=== PATIENT | male | born 1950 | race Hispanic/Latino ===

== ENCOUNTER 2017-09-30 11:48 | Emergency (ER) | payer SELFPAY ==
[2017-09-30 12:18] VITALS: RESP 18; TEMP 97
--- NOTE | 2017-09-30 13:18 | CT ---
PROCEDURE: CT HEAD WITHOUT CONTRAST. HISTORY: trauma COMPARISON: None available. TECHNIQUE: Axial computed tomography images were obtained through the head/brain without intravenous contrast. Radiation dose: Total exam DLP = 970.1 mGy-cm. This CT exam was performed using one or more of the following dose reduction techniques: Automated exposure control, adjustment of the mA and/or kV according to patient size, and/or use of iterative reconstruction technique. FINDINGS: HEMORRHAGE: No intracranial hemorrhage. BRAIN: No mass effect or edema. Mild atrophy. Mild chronic periventricular microvascular ischemic changes. Additional subtle hypo attenuating foci in the barnes radiata/centrum semiovale are nonspecific and may be due to chronic ischemia versus demyelinating process. VENTRICLES: Unremarkable. No hydrocephalus. CALVARIUM: Unremarkable. PARANASAL SINUSES: Unremarkable as visualized. No significant inflammatory changes. MASTOID AIR CELLS: Unremarkable as visualized. No inflammatory changes. OTHER FINDINGS: None. IMPRESSION: No acute intracranial pathology. Age-related changes. Additional subtle nonspecific white matter changes may be due to chronic microvascular ischemic changes versus demyelinating process. MRI can be obtained for further evaluation as clinically warranted on a nonemergent basis.
--- NOTE | 2017-09-30 13:28 | ED PDOC ---
HPI: General Adult Time Seen by Provider: 09/30/17 12:03 Chief Complaint (Nursing): Trauma History Per: Patient Additional Complaint(s): Pt. states at approximately 2330 last night he was felt dizzy then fell down striking the L side of his face onto the ground indoors. Pt. states he may have lost consciousness for "less than 1 second." Pt. states he remembers falling down and the impact. Admits to drinking 3 glasses of wine last night. Reports that he usually does not drink alcohol. Of note, pt. had a L carotid stent placed 2 weeks ago in [place] (pt had 60% blockage). Currently taking Plavix. Pt. states he feels slightly dizzy and has a mild headache. Denies LOC, vomiting, neck pain, numbness, tingling, chest pain, palpitations, abdominal pain, other injury. Pt. states he initially did not want to be evaluated but was encouraged by his friends to get checked out. Against Medical Advice - AMA Patient Left Against Medical Advice: The patient declines admission to the hospital and wishes to leave the Emergency Department. This action is against my medical advice. This decision was made with informed refusal. The patient was told that admission to the hospital is necessary. Explanation of the reasons why were discussed. The risks of leaving were explained to the patient and include, but are not limited to, worsening of known or currently unknown conditions, permanent disability and from undiagnosed or untreated conditions. The patient has the capacity to make this informed decision and understands my explanation of the current medical problem and risks of leaving. The patient voluntarily accepts these risks and signed an AMA form documenting our conversation. The patient was given the opportunity to ask questions and reconsider. The patient was encouraged to return to the Emergency Department at any time for further care. 09/30/17 17:24 Patient informed that he requires more testing therefore he needs admission into hospital. Patient refused admisison. Instructed to return to ED immediately if symptoms persist or worsen. Case d/w Dr. Flores prior to disposition. Pt. requesting Rx for Norvasc 5mg as he no longer has any. Last dose was taken over the weekend. Past Medical History Reviewed: Historical Data, Nursing Documentation, Vital Signs Vital Signs: Last Vital Signs Temp 97 F L 09/30/17 17:36 Pulse 83 09/30/17 17:36 Resp 18 09/30/17 17:36 BP 150/90 09/30/17 17:36 Pulse Ox 98 09/30/17 17:36 - Medical History PMH: HTN, Hypercholesterolemia - Surgical History Surgical History: Appendectomy, Cholecystectomy Other surgeries: L carotid stent - Family History Family History: States: No Known Family Hx - Home Medications Home Medications: Ambulatory Orders Medication Instructions Recorded Amlodipine 1 tab PO DAILY 09/30/17 Clopidogrel [Plavix] 75 mg PO DAILY 09/30/17 Olmesartan/Hydrochlorothiazide 1 tab PO DAILY 09/30/17 [Olmesartan-Hctz 40-25 mg Tab] Pantoprazole Sodium [Protonix] 40 mg PO DAILY 09/30/17 amLODIPine [Norvasc] 5 mg PO DAILY #5 tab 09/30/17 - Allergies Allergies/Adverse Reactions: Allergies Allergy/AdvReac Type Severity Reaction Status Date / Time No Known Allergies Allergy Verified 09/30/17 12:20 Review of Systems ROS Statement: Except As Marked, All Systems Reviewed And Found Negative Neurological: Positive for: Headache, Dizziness Physical Exam - Reviewed Nursing Documentation Reviewed: Yes Vital Signs Reviewed: Yes - Physical Exam Appears: Positive for: Well, Non-toxic, No Acute Distress Head Exam: Positive for: ATRAUMATIC, NORMAL INSPECTION, NORMOCEPHALIC Skin: Positive for: Normal Color, Warm. Negative for: Rash Eye Exam: Positive for: EOMI, PERRL, Periorbital swelling (left), Periorbital tenderness (left with ecchymosis), Other (no hyphema b/l). Negative for: Nystagmus (b/l), Conjunctival injection (b/l) ENT: Positive for: Normal ENT Inspection, TM Is/Are (no hemotympanum b/l) Neck: Positive for: Normal, Painless ROM Cardiovascular/Chest: Positive for: Regular Rate, Rhythm, Chest Non Tender Respiratory: Positive for: CNT, Normal Breath Sounds Gastrointestinal/Abdominal: Positive for: Normal Exam, Bowel Sounds, Soft. Negative for: Tenderness Back: Positive for: Normal Inspection Extremity: Positive for: Normal ROM Neurologic/Psych: Positive for: Alert, Oriented, Gait (steady unassisted). Negative for: Aphasia, Facial Droop - Laboratory Results Result Diagrams: 09/30/17 13:32 09/30/17 13:32 - ECG ECG: Positive for: Interpreted By Me ECG Rhythm: Positive for: Sinus Rhythm. Negative for: ST/T Changes Rate: 82 O2 Sat by Pulse Oximetry: 96 - Progress ED Course And Treament: Case d/w Dr. Martinez who recommends CT head, duplex carotid US, labs. Labs, CT head w/o contrast, duplex b/l carotid US ordered. EKG ordered. Pt. placed on cardiac monitor technician. 1339 CT maxillofacial w/o contrast: No acute facial bone fracture. Mild left periorbital swelling. CT head w/o contrast: No acute intracranial pathology. Age-related changes. Additional subtle nonspecific white matter changes may be due to chronic microvascular ischemic changes versus demyelinating process. MRI can be obtained for further evaluation as clinically warranted on a nonemergent basis. Pending US. Disposition - Clinical Impression Clinical Impression: Dizziness, Head injury, Left against medical advice - Patient ED Disposition Is Patient to be Admitted: No - Disposition Referrals: Allen Aguayo [Outside] Disposition: Against Medical Advice Disposition Time: 17:26 Condition: STABLE Prescriptions: amLODIPine [Norvasc] 5 mg PO DAILY #5 tab Instructions: Closed Head Injury (DC), Dizziness, Nonvertigo, (DC), Leaving Against Medical Advice Forms: [email or web address]. ([place]) Print Language: BANGLADESHI
--- NOTE | 2017-09-30 13:41 | CT ---
PROCEDURE: CT MAXILLOFACIAL BONES WITHOUT CONTRAST HISTORY: trauma; L periorbital swelling COMPARISON: None TECHNIQUE: Contiguous axial CT images of the maxillofacial bones were obtained. Coronal and sagittal reformats were generated. Radiation dose: Total exam DLP = 740.3 mGy-cm. This CT exam was performed using one or more of the following dose reduction techniques: Automated exposure control, adjustment of the mA and/or kV according to patient size, and/or use of iterative reconstruction technique. FINDINGS: NASAL BONES: Unremarkable. ORBITS: Mild left periorbital swelling. Globes intact. Intraconal and extraconal fat preserved. PARANASAL SINUSES/ MASTOIDS: Clear. MAXILLA: Left maxillary sinus mucosal thickening. MANDIBLE/ TEMPOROMANDIBULAR JOINTS: Unremarkable. SKULL BASE: Unremarkable. TEMPORAL BONES: Middle ears and mastoid grossly unremarkable. OTHER FINDINGS: Left carotid artery stent. IMPRESSION: No acute facial bone fracture. Mild left periorbital swelling.
[2017-09-30 13:47] LABS: ALB/GLOB RATIO 1.3 (1.0-2.1); ALBUMIN 4.3 g/dL (3.5-5.0); ALT/SGPT 50 U/L (21-72); AST/SGOT 21 U/L (17-59); BLOOD UREA NITROGEN 24 mg/dl (9-20); CALCIUM 9.6 mg/dL (8.4-10.2); GFR AFRICAN-AMERICAN > 60; GFR NON-AFRICAN AMERICAN > 60
[2017-09-30 13:49] LABS: BASO % 0.4 % (0.0-2.0); EOS # 0.1 K/uL (0.0-0.7); EOS % 1.8 % (0.0-4.0); HEMOGLOBIN 14.2 g/dL (12.0-18.0); LYMPH # 2.1 K/uL (1.0-4.3); LYMPH % 25.1 % (20.0-40.0); MEAN CELL VOLUME 89.7 fl (80.0-94.0); MEAN CORPUSCULAR HEMOGLOBIN 29.9 pg (27.0-31.0); MEAN CORPUSCULAR HGB CONC 33.4 g/dL (33.0-37.0); MEAN PLATELET VOLUME 8.4 fl (7.2-11.7); MONO # 0.9 K/uL (0.0-0.8); MONO % 10.4 % (0.0-10.0); NEUT # 5.1 K/uL (1.8-7.0); NEUT % 62.3 % (50.0-75.0); RBC 4.75 Mil/uL (4.40-5.90); RED CELL DISTRIBUTION WIDTH 14.1 % (11.5-14.5); WHITE BLOOD COUNT 8.2 K/uL (4.8-10.8)
[2017-09-30 14:13] LABS: INR 0.9 (0.9-1.2); PROTHROMBIN TIME 10.4 Seconds (9.8-13.1)
[2017-09-30 14:14] LABS: PARTIAL THROMBOPLASTIN TIME 32.7 Seconds (25.6-37.1)
--- NOTE | 2017-09-30 17:09 | US ---
PROCEDURE: Duplex ultrasound of the carotid and vertebral arteries. HISTORY: L carotid artery stent placed 2 weeks ago COMPARISON: None available. TECHNIQUE: Grayscale and duplex Doppler evaluation of the cervical carotid and vertebral arteries were performed. The common carotid, carotid bifurcations and cervical ICA and proximal ECA were evaluated. The vertebral arteries were evaluated for gross patency and direction. FINDINGS: RIGHT CAROTID ARTERIES: Common Carotid Artery: Intimal thickening is present Maximal flow velocity of 92.2 cm/s. Carotid Bifurcation: Focal calcified plaque right carotid bulb Internal Carotid Artery:Heterogeneous plaque formation. Maximal flow velocity of 77.5 cm/s. External Carotid Artery (proximal branches): Normal. Maximal flow velocity of 129.6 cm/s. ICA/CCA Ratio: 0.9 LEFT CAROTID ARTERIES: Common Carotid Artery: Stent identified in the left common carotid artery Maximal flow velocity of 95.1 cm/s. Carotid Bifurcation: Intimal thickening is present Internal Carotid Artery:Heterogeneous plaque formation. Maximal flow velocity of 56.4 cm/s. External Carotid Artery (proximal branches): Normal. Maximal flow velocity of 86.4 cm/s. ICA/CCA Ratio: 1.3 VERTEBRAL ARTERIES: Right Vertebral Artery: Patent. Antegrade flow. Left Vertebral Artery: Patent. Antegrade flow. OTHER FINDINGS: None. IMPRESSION: Right ICA degree of stenosis: Less than 50% Left ICA degree of stenosis: Less than 50% Reference Internal Carotid Artery (ICA) Peak Systolic Velocity (PSV) for above: 1. Less than 50% stenosis less than 125 cm/s peak systolic velocity 2. 50-69% stenosis 125-230cm/s peak systolic velocity 3. Greater than 70% but less than near occlusion greater than 230 cm/s peak systolic velocity
[2017-09-30 17:37] VITALS: BP 150/90
[2017-09-30 17:45] VITALS: PULSE 82; O2SAT 96
--- NOTE | 2017-10-01 13:39 | CARD ---
APPROVED REPORT EKG Measurement Heart [id number] <Conclusion> Normal sinus rhythm Normal ECG
== END 2017-09-30 17:50 | disposition home or self-care (01) ==
LOC: H.ER 11:48
DX: R42 Dizziness and giddiness (principal); S09.90XA Unspecified injury of head, initial encounter; W19.XXXA Unspecified fall, initial encounter; Y92.89 Other specified places as the place of occurrence of the external cause; E78.00 Pure hypercholesterolemia, unspecified; I10 Essential (primary) hypertension; I65.23 Occlusion and stenosis of bilateral carotid arteries; Z79.02 Long term (current) use of antithrombotics/antiplatelets
CPT/HCPCS: 70450; 70486; 80053; 84484; 85025; 85610; 85730; 86850; 86900; 93005; 93880; 99284; G0480